=== PATIENT | male | born 1990 | race Caucasian/White ===

== ENCOUNTER 2019-12-04 18:04 | Emergency (ER) | payer OTHER ==
[2019-12-04 18:27] VITALS: BP 126/81
[2019-12-04 18:46] LABS: Influenza B Molecular POSITIVE (Negative)
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
== END 2019-12-04 19:45 | disposition home or self-care (01) ==
LOC: UCEAST 18:04
DX: J10.1 Influenza due to other identified influenza virus with other respiratory manifestations (principal); H66.92 Otitis media, unspecified, left ear; Z88.0 Allergy status to penicillin
CPT/HCPCS: 99212; G0463

== ENCOUNTER 2020-01-05 08:30 | Day surgery (SDC) | payer OTHER ==
[~2020-01-05 08:30] MED LIST: Buffered Lidocaine 1% SYRIN* 1 ML/SYRINGE INTRADERM ONE; Dexamethasone IV* 4 MG/ML 1 ML (4 MG) IV SLOW PU ONE; Famotidine IV* 10 MG/ML 2 ML (20 mg) IV ONE; Lactated Ringers 1000 ML Bag* 1,000 ML IV SCH
[2020-01-05] MEDS ORDERED: Dexamethasone IV* 4 MG/ML 1 ML (4 MG) ONE (08:49)
[2020-01-05] MEDS ORDERED: Famotidine IV* 10 MG/ML 2 ML (20 mg) ONE (08:50)
[2020-01-05] MEDS ORDERED: Buffered Lidocaine 1% SYRIN* 1 ML/SYRINGE INTRADERM ONE (08:50)
[2020-01-05] MEDS ORDERED: Clindamycin 900 MG/D5W BAG(*) 900 MG/50 ML BAG IVPB ONE (08:50)
[2020-01-05] MEDS ORDERED: Midazolam* 1 MG/ML 5 ML VIAL (5 MG) ONE (10:11)
[2020-01-05] MEDS ORDERED: Propofol* 10 MG/ML 20 ML BTL ONE (10:11)
[2020-01-05] MEDS ORDERED: fentaNYL* 50 MCG/ML 2 ML VIAL (100 MCG VIAL) ONE ×2 (10:11→13:13)
[2020-01-05] MEDS ORDERED: Lidocaine 2% PF * 5 ML VIAL ONE (10:11)
[2020-01-05] MEDS ORDERED: oxyCODONE/Acetamin 5/325 MG* TAB PO PRN (10:20)
[2020-01-05] MEDS ORDERED: HYDROcodone/ACETAMIN 5-325 MG* 1 TAB PO PRN (10:20)
[2020-01-05] MEDS ORDERED: Naloxone* 0.4 MG/ML 1 ML VIAL IV PRN (10:20)
[2020-01-05] MEDS ORDERED: DiMENhydriNATE IV* 50 MG/ML VIAL IV PUSH PRN (10:20)
[2020-01-05] MEDS ORDERED: Ketorolac INJ* 30 MG/ML 1 ML VIAL ONE (10:44)
[2020-01-05] MEDS ORDERED: Ondansetron INJ* 2 MG/ML VIAL ONE (11:37)
[2020-01-05] MEDS ORDERED: Bupivacaine 0.5%* 50 ML MDV VIAL ONE (11:58)
--- NOTE | 2020-01-05 12:58 | OP ---
Operative Report - Blank - Operative Report Date of Operation: 01/05/20 Note: PATIENT: Aba Ariza DATE OF : 1990 DATE OF SURGERY: 01/05/2020 SURGEON: Colt Miller MD EXPERIMENTAL MECHANIC: MELINA Montana, whos assistance was necessary for positioning, retraction, help with instrumentation, and closure. ANESTHESIOLOGIST: Dr. Boyd PREOPERATIVE DIAGNOSIS: Right osteochondral lesion of the talus and ankle instability POSTOPERATIVE DIAGNOSIS: Right osteochondral lesion of the talus and ankle instability OPERATION: 1. Right ankle arthroscopy with extensive debridement. 2. Curettage and microfracture of talar osteochondral lesion. 3. Right ankle modified Brostrom procedure lateral ligament reconstruction. ANESTHESIA: General IMPLANTS: none TOURNIQUET TIME: Less than 2 hours with a well-padded thigh tourniquet at 250 mmHg. SPECIMENS: none ESTIMATED BLOOD LOSS: minimal COMPLICATIONS: none STATUS: Stable from the operating room to the recovery room and then home. INDICATIONS FOR PROCEDURE: Aba has had recurrent right ankle instability and pain. Both operative and non operative treatment alternatives were reviewed. Further, the nature and risks of surgery were reviewed in careful detail, in the office as well as the pre-operative holding area. Our discussions regarding the risks of surgery included, but were not limited to, infection, wound problems, nerve injury, neuroma, RSD, persistent symptoms, blood clot, failure of the surgery, and even the remote chance of catastrophic complication. DESCRIPTION OF PROCEDURE: The patient was seen in the preoperative holding unit and informed written consent was obtained. The appropriate extremity was marked. The patient was then brought to the operating room and carefully positioned on the operating room table. Anesthesia was induced. All bony prominences were padded with great care. A well-padded thigh tourniquet was placed. A chlorhexidine based pre- scrub was performed followed by a chloraprep prep and drape in standard sterile fashion. A surgical safety pause was then conducted in which we confirmed the appropriate patient, extremity, planned procedure, availability of equipment, indication and administration of prophylactic antibiotics, and DVT prophylaxis in the form of a compression boot on the non-surgical extremity. An Esmarch exsanguination of the limb was then performed and the tourniquet inflated. The leg was positioned in the noninvasive ankle arthroscopy leg calderon setup. I began by establishing the anteromedial portal. I utilized a spinal needle for this. Great care was taken to protect the superficial neurovascular structures. Under direct visualization, I then established an anterolateral portal. Great care was taken to protect the superficial peroneal nerve. I utilized the full radius shaver to remove a considerable amount of synovitis from the anterior and posterior aspects of the ankle joint. This was carefully removed to give a nice view of the ankle joint. There was an osteochondral lesion of the talus at the lateral talar dome. There was some mild fraying of the cartilage at the medial talar dome, but no discrete lesion. At this point, I utilized a ringed curette to remove loose debris from within the osteochondral lesion. This was curetted back to a stable rim around the perimeter of lesion. The calcified cartilage layer was then removed. I then utilized the microfracture awl to microfracture the lesion. There was healthy bleeding from the subchondral bone. I then again utilized the full radius shaver to remove all additional debris from the ankle joint. I removed the arthroscopic equipment and closed the portals utilizing 3-0 nylon suture. I then made an approximately 8 cm incision overlying the distal fibula. This was made in line with the distal fibula and then curving anteriorly in line with the fourth ray. Dissection was carried down through the soft tissues. Superficial hemostasis was obtained. I dissected down to the lateral aspect of the fibula at the periosteal and ligamentous layer and then dissected anteriorly to expose the anterolateral ankle ligaments. We protected the superficial peroneal nerve at all times, which was not visualized within our field. Once we had adequately exposed a pocket anterior to the ligaments, we sharply took the ligaments down off of the anterior and distal aspect of the fibula using a 15 blade. There was marked thinning of the ligaments. The inferior extensor retinaculum was exposed and protected for subsequent repair later in the procedure. I then utilized a rongeur to make a trough along the fibula to receive the reconstructed ligaments. I then utilized a 0.045 and 0.062 inch K-wires to drill holes in the fibula for a transosseous suture repair of the lateral ligaments utilizing a horizontal mattress suture. Multiple #1 Vicryl sutures were passed through the fibula and then through the ligaments and then back through the fibula. These sutures were all passed with great care taken to appropriately tension both the ATFL as well as the CFL in order to get a nice tight repair. We held the ankle in a dorsiflexed and everted position while the ligaments and sutures were tied down over the fibular bone bridges. These held the ankle in a much improved position with excellent tension on the ligaments. We then utilized a rotational flap from the periosteum overlying the distal fibula to augment the repair. This was sewn down using a horizontal mattress stich overlying the ATFL. We further augmented the repair by bringing the inferior extensor retinaculum up to the fibula. There was a much improved anterior drawer at this point as compared to pre-operatively. The wound was copiously irrigated. At this point, a sterile dressing was applied and the ankle was splinted in a neutral position. The patient was then awakened from anesthesia and transferred to the recovery room in stable condition. There were no complications. All needle and sponge counts were correct at the end of the case. ATTESTATION: I attest I was present and scrubbed and performed the critical portions of the procedure myself. POSTOPERATIVE PLAN: The patient will remain nonweightbearing for an anticipated duration of six weeks. Follow up will be in two weeks for likely suture removal , Steri-Strip application and transition into a short leg cast.
[2020-01-05] MEDS ORDERED: oxyCODONE/Acetamin 5/325 MG* TAB ONE (13:13)
[2020-01-05] MEDS: fentaNYL* 50 MCG/ML 2 ML VIAL (100 MCG VIAL) IV PRN ×2 (13:18→13:35)
[2020-01-05 14:09] VITALS: BP 126/67
== END 2020-01-05 13:45 | disposition home or self-care (01) ==
LOC: OR 08:30
PROVIDERS: ATTEND Orthopaedic Surgery
DX: M93.271 Osteochondritis dissecans, right ankle and joints of right foot (principal); M25.371 Other instability, right ankle; M65.871 Other synovitis and tenosynovitis, right ankle and foot; M84.375A Stress fracture, left foot, initial encounter for fracture; Z88.0 Allergy status to penicillin
CPT/HCPCS: A9270-GY; J1100; J1885; J2250; J2405; J2704; J3010; J3490

== ENCOUNTER 2020-01-30 17:34 | Emergency (ER) | payer OTHER ==
--- OUTSIDE RECORDS SUMMARY | 2020-01-30 17:39 | XMS REPORT | Continuity of Care Document ---
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 Problems Active Problems Provider Date Osteochondritis dissecans Colt Miller MD Onset: 11/21/2018 Other synovitis and tenosynovitis, unspecified Colt Miller MD Onset: 11/21 ankle and foot Stress fracture of metatarsal bone Colt Miller MD Onset: 12/07/2019 Joint derangement Colt Miller MD Onset: 12/15/2019 Social History Type Date Description Comments Sex Unknown ETOH Use Rarely consumes alcohol Tobacco Use Start: Unknown Patient has never smoked Smoking Status Reviewed: 01/18/20 Patient has never smoked Exercise Type/Frequency Exercises regularly Allergies, Adverse Reactions, Alerts Active Allergies Reaction Severity Comments Date Penicillin 11/04/2018 Inactive Allergies NKDA 11/04/2018 Medications Active Medications SIG Qnty Indications Ordering Provider Date Knee Scooter use for M65.871 Colt Miller MD 01/06/2020 non-weightbearing after right ankle surgery ht: 72" wt: 170 lbs M93.271 M25.371 Oxycodone HCL 1 tabs by mouth every 12tabs Colt Miller MD 01/05/2020 5mg Tablets 4-6 hours as needed Medications Administered in Office Medication SIG Qnty Indications Ordering Provider Date Triamcinolone (Kenalog) Colt Miller MD 11/21/2018 Injection Immunizations Description No Information Available Vital Signs Date Vital Result Comment 01/18/2020 9:51am Height 72 inches 6'0" Weight 170.00 lb Heart Rate 89 /min Body Temperature 96.5 F O2 % BldC Oximetry 98 % BMI (Body Mass Index) 23.1 kg/m2 12/21/2019 2:50pm Height 72 inches 6'0" Weight 170.00 lb Heart Rate 54 /min Body Temperature 96.4 F O2 % BldC Oximetry 97 % BMI (Body Mass Index) 23.1 kg/m2 Results Test Acquired Date Facility Test Result H/L Range Note Laboratory test 12/17/2019 [facility] Vitamin D 23.3 ng/mL Normal 20-[address] Total 25(Oh) [place] [address] [phone] 1 Total 25-Hydroxyvitamin D2 and D3 (25-OH-VitD) <10 ng/mL (severe deficiency) 10-19 ng/mL (mild to moderate deficiency) 20-50 ng/mL (optimum levels) 51-80 ng/mL (increased risk of hypercalciuria) >80 ng/mL (toxicity possible) Procedures Date Code Description Status 01/18/2020 10554 Short Leg Cast Completed 01/05/2020 48721 Arthroscopy Ankle Debridement Extensive Completed 01/05/2020 63923 Arthoscopy Ankle Excision Osteochondral Defect Completed 01/05/2020 83828 Repair Collateral Ligament Ankle, Secondary Completed 01/05/2020 78118 Repair Collateral Ligament Ankle, Secondary Completed 01/05/2020 00175 Repair Collateral Ligament Ankle, Secondary Completed Medical Devices Description No Information Available Encounters Type Date Location Provider Dx Diagnosis Office Visit 12/21/2019 [facility] Colt Miller M93.271 Osteochondritis 2:15p at [place] MD alvarenga, r ankle and joints of right foot M25.371 Other instability, right ankle M84.375A Stress fracture, left foot, initial encounter for fracture Office Visit 12/15/2019 [facility] Colt Miller M84.375A Stress 9:45a Orthopedics at fracture, left [place] foot, initial encounter for fracture M93.271 Osteochondritis dissecans, r ankle and joints of right foot M25.371 Other instability, right ankle Office Visit 12/07/2019 1:30p [facility] Colt Miller M79.672 Pain in at [place] left foot R93.6 Abnormal findings on diagnostic imaging of limbs Assessments Date Code Description Provider 01/18/2020 M65.871 Other synovitis and tenosynovitis, right Colt Miller MD ankle and foot 01/18/2020 M93.271 Osteochondritis dissecans, right ankle and Colt Miller MD joints of right f 01/18/2020 M25.371 Other instability, right ankle Colt Miller MD 01/05/2020 M65.871 Other synovitis and tenosynovitis, right Andreeajo Contreras, RPA-C ankle and foot 01/05/2020 M65.871 Other synovitis and tenosynovitis, right Colt Miller MD ankle and foot 01/05/2020 M93.271 Osteochondritis dissecans, right ankle and Andreea Contreras, RPA-C joints of right f 01/05/2020 M93.271 Osteochondritis dissecans, right ankle and Colt Miller MD joints of right f 01/05/2020 M25.371 Other instability, right ankle Andreea Contreras, RPA-C 01/05/2020 M25.371 Other instability, right ankle Colt Miller MD 12/21/2019 M93.271 Osteochondritis dissecans, right ankle and Colt Miller MD joints of right f 12/21/2019 M25.371 Other instability, right ankle Colt Miller MD 12/21/2019 M84.375A Stress fracture, left foot, initial encounter Colt Miller MD for fracture 12/15/2019 M84.375A Stress fracture, left foot, initial encounter Colt Miller MD for fracture 12/15/2019 M93.271 Osteochondritis dissecans, right ankle and Colt Miller MD joints of right f 12/15/2019 M25.371 Other instability, right ankle Colt Miller MD 12/07/2019 M79.672 Pain in left foot Colt Miller MD 12/07/2019 R93.6 Abnormal findings on diagnostic imaging of Colt Miller MD limbs Plan of Treatment Future Appointment(s):02/16/2020 9:15 am - Colt Miller MD at [facility] at Sguqum2301/18/2020 - Colt Miller [facility]65.871 Other synovitis and tenosynovitis, right ankle and footM93.271 Osteochondritis dissecans, right ankle and joints of right fFollow up:Follow Up: 1 ijogoD22.371 Other instability, right ankle Functional Status Description No Information Available Mental Status Description No Information Available Referrals Description No Information Available
--- OUTSIDE RECORDS SUMMARY | 2020-01-30 17:40 | XMS REPORT | Continuity of Care Document ---
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 [phone] Problems Active Problems Provider Date Joint derangement Colt Miller MD Onset: 12/15/2019 Stress fracture of metatarsal bone Colt Miller MD Onset: 12/07/2019 Other synovitis and tenosynovitis, unspecified Colt Miller MD Onset: 11/21 ankle and foot Osteochondritis dissecans Colt Miller MD Onset: 11/21/2018 Social History Type Date Description Comments Sex Unknown ETOH Use Rarely consumes alcohol Tobacco Use Start: Unknown Patient has never smoked Smoking Status Reviewed: 12/15/19 Patient has never smoked Exercise Type/Frequency Exercises regularly Allergies, Adverse Reactions, Alerts Active Allergies Reaction Severity Comments Date Penicillin 11/04/2018 Inactive Allergies NKDA 11/04/2018 Medications Description No Active Medications Medications Administered in Office Medication SIG Qnty Indications Ordering Provider Date Triamcinolone (Kenalog) Colt Miller MD 11/21/2018 Injection Immunizations Description No Information Available Vital Signs Date Vital Result Comment 12/15/2019 9:49am Height 72 inches 6'0" Weight 170.00 lb Heart Rate 60 /min BP Systolic 122 mmHg BP Diastolic 60 mmHg Respiratory Rate 12 /min Body Temperature 98.1 F Pain Level 1 BMI (Body Mass Index) 23.1 kg/m2 12/07/2019 1:42pm Height 72 inches 6'0" Weight 170.00 lb Heart Rate 50 /min BP Systolic 130 mmHg BP Diastolic 68 mmHg Respiratory Rate 16 /min Body Temperature 97.4 F Pain Level 8 O2 % BldC Oximetry 98 % BMI (Body Mass Index) 23.1 kg/m2 Results Description No Information Available Procedures Description No Information Available Medical Devices Description No Information Available Encounters Description No Information Available Assessments Date Code Description Provider 12/15/2019 M84.375A Stress fracture, left foot, initial encounter Colt Miller MD for fracture 12/15/2019 M93.271 Osteochondritis dissecans, right ankle and Colt Miller MD joints of right f 12/15/2019 M25.371 Other instability, right ankle Colt Miller MD 12/07/2019 M84.375A Stress fracture, left foot, initial encounter Colt Miller MD for fracture Plan of Treatment Future Appointment(s):01/18/2020 9:30 am - Colt Miller MD at [facility] at Fznhxo5512/21/2019 2:15 pm - Colt Miller MD at [facility] at Gnaydm6212/15/2019 - Colt Miller MDM84.375A Stress fracture, left foot, initial encounter for fractureNew Labs:Vitamin D Total 25(Oh), Ordered: 12/15/19M93.271 Osteochondritis dissecans, right ankle and joints of right fNew Xrays:MRI Ankle Right W/O, Ordered: 12/15/19Follow up:Follow Up: after testing / imaging is [id number] Other instability, right ankle Functional Status Description No Information Available Mental Status Description No Information Available Referrals Description No Information Available
--- OUTSIDE RECORDS SUMMARY | 2020-01-30 17:40 | XMS REPORT | Continuity of Care Document ---
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 Problems Provider Date Osteochondritis dissecans [...] Patient has never smoked Smoking Status Reviewed: 12/21/19 Patient has never smoked Exercise Type/Frequency Exercises regularly Allergies, Adverse Reactions, Alerts Active Allergies Reaction Severity Comments Date Penicillin 11/04/2018 Inactive Allergies NKDA 11/04/2018 Medications Description No Active Medications Medications Administered in Office Medication SIG Qnty Indications Ordering Provider Date Triamcinolone (Kenalog) Colt Miller MD 11/21/2018 Injection Immunizations Description No Information Available Vital Signs Date Vital Result Comment 12/21/2019 2:50pm Height 72 inches 6'0" Weight 170.00 lb Heart Rate 54 /min Body Temperature 96.4 F O2 % BldC Oximetry 97 % BMI (Body Mass Index) 23.1 kg/m2 12/15/2019 9:49am Height 72 inches 6'0" Weight 170.00 lb Heart Rate 60 /min BP Systolic 122 mmHg BP Diastolic 60 mmHg Respiratory Rate 12 /min Body Temperature 98.1 F Pain Level 1 BMI (Body Mass Index) 23.1 kg/m2 Results Test Acquired Date Facility Test Result H/L Range Note Laboratory test 12/17/2019 [facility] Vitamin D 23.3 ng/mL Normal 20-[address](Oh) [place] [address] [phone] 1 Total 25-Hydroxyvitamin D2 and D3 (25-OH-VitD) <10 ng/mL (severe deficiency) 10-19 ng/mL (mild to moderate deficiency) 20-50 ng/mL (optimum levels) 51-80 ng/mL (increased risk of hypercalciuria) >80 ng/mL (toxicity possible) Procedures Description No Information Available Medical Devices Description No Information Available Encounters Type Date Location Provider Dx Diagnosis Office Visit 12/15/2019 [facility] Liam Copeland84.375A Stress fracture, 9:45a at [place] left foot, initial encounter for fracture M93.271 Osteochondritis dissecans, r ankle and joints of right foot M25.371 Other instability, right ankle Office Visit 12/07/2019 1:30p [facility] Lali Copeland.672 Pain in at [place] left foot R93.6 Abnormal findings on diagnostic imaging of limbs Assessments Date Code Description Provider 12/21/2019 M93.271 Osteochondritis dissecans, right ankle and [...] Miller MD limbs Plan of Treatment Future Appointment(s):01/05/2020 10:15 am - HOWIE Montana at [facility] at Feeqjl3601/05/2020 10:15 am - Colt Miller MD at [facility] at [id number]/18/2020 9:30 am - Colt Miller MD at [facility] at Fwukcr8812/21/2019 - Colt Miller, MDM93.271 Osteochondritis dissecans, right ankle and joints of right fFollow up:Follow Up: 13-15 days esouymO82.371 Other instability, right xwhjlK28.375A Stress fracture, left foot , initial encounter for fracture Functional Status Description No Information Available Mental Status Description No Information Available Referrals Description No Information Available
--- OUTSIDE RECORDS SUMMARY | 2020-01-30 17:40 | XMS REPORT | Continuity of Care Document ---
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 Problems Active Problems Provider Date Osteochondritis dissecans [...] Result H/L Range Note Laboratory test 12/17/2019 [facility] Vitamin D 23.3 ng/mL Normal 20-[address] Total [address](Oh) [place] [address] [phone] 1 Total 25-Hydroxyvitamin D2 and D3 (25-OH-VitD) <10 ng/mL (severe deficiency) 10-19 ng/mL (mild to moderate deficiency) 20-50 ng/mL (optimum levels) 51-80 ng/mL (increased risk of hypercalciuria) >80 ng/mL (toxicity possible) Procedures Description No Information Available Medical Devices Description No Information Available Encounters Type Date Location Provider Dx Diagnosis Office Visit 12/21/2019 [facility] M93.271 Osteochondritis 2:15p at [place] MD alvarenga, r ankle and joints of right foot M25.371 Other instability, right ankle M84.375A Stress fracture, left foot, initial encounter for fracture Office Visit 12/15/2019 [facility] Liam Copeland84.375A Stress 9:45a Orthopedics at fracture, left [place] foot, initial encounter for fracture M93.271 Osteochondritis dissecans, r ankle and joints of right foot M25.371 Other instability, right ankle Office Visit 12/07/2019 1:30p [facility] Colt Miller M79.672 Pain in at [place] left foot R93.6 Abnormal findings on diagnostic imaging of limbs Assessments Date Code Description Provider 12/21/2019 Mik3.271 Osteochondritis dissecans, right ankle and Colt Miller [...] Appointment(s):01/05/2020 10:15 am - HOWIE Montana at [facility] at Osqbxx1501/05/2020 10:15 am - Colt Miller MD at [facility] at Pxveik7201/18/2020 9:30 am - Colt Miller MD at [facility] at Fmhnew9012/21/2019 - Colt Miller, MDM93.271 Osteochondritis dissecans, right ankle and joints of right fFollow up:Follow Up: 13-15 days [id number] Other instability, right hyqtxW23.375A Stress fracture, left foot , initial encounter for fracture Functional Status Description No Information Available Mental Status Description No Information Available Referrals Description No Information Available
--- OUTSIDE RECORDS SUMMARY | 2020-01-30 17:40 | XMS REPORT | Continuity of Care Document ---
:1990 External Reference #:[id number] Author Name Colt Miller MD (transmitted by agent of provider Julia Watson) Address [address] [place] [phone] Care Team Providers Name Role Phone [facility]/[place] Care Team Information Hand Cutter [phone] Problems Active Problems Provider Date Osteochondritis dissecans [...] Result H/L Range Note Laboratory test 12/17/2019 [facility] Vitamin D 23.3 ng/mL Normal 20-[address](Oh) [place] [address] [phone] 1 Total 25-Hydroxyvitamin D2 and D3 (25-OH-VitD) <10 ng/mL (severe deficiency) 10-19 ng/mL (mild to moderate deficiency) 20-50 ng/mL (optimum levels) 51-80 ng/mL (increased risk of hypercalciuria) >80 ng/mL (toxicity possible) Procedures Date Code Description Status 01/18/2020 52569 Short Leg Cast Completed 01/05/2020 29568 Arthroscopy Ankle Debridement Extensive Completed 01/05/2020 51290 Arthroscopy Ankle Debridement Extensive Completed 01/05/2020 72487 Arthoscopy Ankle Excision Osteochondral Defect Completed 01/05/2020 44765 Arthoscopy Ankle Excision Osteochondral Defect Completed 01/05/2020 18455 Repair Collateral Ligament Ankle, Secondary Completed 01/05/2020 13485 Repair Collateral Ligament Ankle, Secondary Completed Medical Devices Description No Information Available Encounters Type Date Location Provider Dx Diagnosis Office Visit 12/21/2019 [place] Dannielle Miller M93.271 Osteochondritis 2:15p at [place] dissecans, r ankle and joints of right foot M25.371 Other instability, right ankle M84.375A Stress fracture, left foot, initial encounter for fracture Office Visit 12/15/2019 Isr[place] Miller M84.375A Stress 9:45a Orthopedics at fracture, left [place] foot, initial encounter for fracture M93.271 Osteochondritis dissecans, r ankle and joints of right foot M25.371 Other instability, right ankle Office Visit 12/07/2019 1:30p [place] [facility] M79.672 Pain in at [place] left foot R93.6 Abnormal findings on diagnostic imaging of limbs Assessments Date Code Description Provider 01/18/2020 M65.871 Other synovitis and tenosynovitis, right Colt Miller MD ankle and foot 01/18/2020 M93.271 Osteochondritis dissecans, right ankle and Colt Miller MD joints of right f 01/18/2020 M25.371 Other instability, right ankle Colt Miller MD 01/05/2020 M65.871 Other synovitis and tenosynovitis, right Andreea Diane, RPA-C ankle and foot 01/05/2020 M65.871 Other synovitis and tenosynovitis, right Colt Miller MD ankle and foot 01/05/2020 M93.271 Osteochondritis dissecans, right ankle and Andreea [place], RPA-C joints of right f 01/05/2020 M93.271 Osteochondritis dissecans, right ankle and Colt Miller MD joints of right f 01/05/2020 M25.371 Other instability, right ankle Andreea [place], RPA-C 01/05/2020 M25.371 Other instability, right ankle [...] Colt Miller MD limbs Plan of Treatment 01/18/2020 - Colt Miller MDM65.871 Other synovitis and tenosynovitis, right ankle and footM93.271 Osteochondritis dissecans, right ankle and joints of right fFollow up:Follow Up: 1 [id number] Other instability, right ankle Functional Status Description No Information Available Mental Status Description No Information Available Referrals Description No Information Available
--- OUTSIDE RECORDS SUMMARY | 2020-01-30 17:40 | XMS REPORT | Continuity of Care Document ---
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 Problems Active Problems Provider Date Osteochondritis dissecans [...] H/L Range Note Laboratory test 12/17/2019 [facility] Vitamin D 23.3 ng/mL Normal 20-[address](Oh) [place] [address] [phone] 1 Total 25-Hydroxyvitamin D2 and D3 (25-OH-VitD) <10 ng/mL (severe deficiency) 10-19 ng/mL (mild to moderate deficiency) 20-50 ng/mL (optimum levels) 51-80 ng/mL (increased risk of hypercalciuria) >80 ng/mL (toxicity possible) Procedures Description No Information Available Medical Devices Description No Information Available Encounters Type Date Location Provider Dx Diagnosis Office Visit 12/21/2019 [facility] Colt Miller M93.271 Osteochondritis 2:15p at [place] MD alvarenga r ankle and joints of right foot M25.371 Other instability, right ankle Office Visit 12/07/2019 1:30p [facility] Liam Copeland79.672 Pain in at [place] left foot R93.6 Abnormal findings on diagnostic imaging of limbs Assessments Date Code Description Provider 12/21/2019 M93.271 Osteochondritis dissecans, right ankle and Colt Miller MD joints of right f 12/21/2019 M25.371 Other instability, right ankle Colt Miller MD 12/15/2019 M84.375A Stress fracture, left foot, initial encounter Colt Miller MD for fracture 12/15/2019 M93.271 Osteochondritis dissecans, right ankle and Colt Miller MD joints of right f 12/15/2019 M25.371 Other instability, right ankle Colt Miller MD 12/07/2019 M79.672 Pain in left foot Colt Miller MD 12/07/2019 R93.6 Abnormal findings on diagnostic imaging of Colt Miller MD limbs Plan of Treatment Future Appointment(s):01/18/2020 9:30 am - Colt Miller MD at [facility] at Knqvpn6012/21/2019 - Colt Miller MDM93.271 Osteochondritis dissecans, right ankle and joints of right fFollow up:Follow Up: 13-15 days tuvzgbP00.371 Other instability, right ankle Functional Status Description No Information Available Mental Status Description No Information Available Referrals Description No Information Available
--- OUTSIDE RECORDS SUMMARY | 2020-01-30 17:40 | XMS REPORT | Continuity of Care Document ---
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 Problems Active Problems Provider Date Stress fracture of metatarsal bone Colt Miller MD Onset: 12/07/2019 Other synovitis and tenosynovitis, unspecified Colt Miller MD Onset: 11/21 ankle and foot Osteochondritis dissecans Colt Miller MD Onset: 11/21/2018 Social History Type Date Description Comments Sex Unknown ETOH Use Rarely consumes alcohol Tobacco Use Start: Unknown Patient has never smoked Smoking Status Reviewed: 12/07/19 Patient has never smoked Exercise Type/Frequency Exercises regularly Allergies, Adverse Reactions, Alerts Active Allergies Reaction Severity Comments Date Penicillin 11/04/2018 Inactive Allergies NKDA 11/04/2018 Medications Description No Active Medications Medications Administered in Office Medication SIG Qnty Indications Ordering Provider Date Triamcinolone (Kenalog) Colt Miller MD 11/21/2018 Injection Immunizations Description No Information Available Vital Signs Date Vital Result Comment 12/07/2019 1:42pm Height 72 inches 6'0" Weight 170.00 lb Heart Rate 50 /min BP Systolic 130 mmHg BP Diastolic 68 mmHg Respiratory Rate 16 /min Body Temperature 97.4 F Pain Level 8 O2 % BldC Oximetry 98 % BMI (Body Mass Index) 23.1 kg/m2 11/21/2018 3:18pm Height 72 inches 6'0" Weight 178.00 lb Heart Rate 80 /min Respiratory Rate 18 /min Body Temperature 97.1 F Pain Level 1 BMI (Body Mass Index) 24.1 kg/m2 Results Description No Information Available Procedures Description No Information Available Medical Devices Description No Information Available Encounters Description No Information Available Assessments Date Code Description Provider 12/07/2019 M84.375A Stress fracture, left foot, initial encounter Colt Miller MD for fracture Plan of Treatment Future Appointment(s):12/15/2019 9:45 am - Colt Miller MD at [facility] at Cpuxrd2312/07/2019 - Colt Miller, MDM84.375A Stress fracture, left foot, initial encounter for fractureFollow up:Follow Up: after testing / imaging is completed Functional Status Description No Information Available Mental Status Description No Information Available Referrals Description No Information Available
[2020-01-30 17:48] VITALS: BP 141/80
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
[2020-01-30] MEDS ORDERED: Cephalexin CAP* 500 MG PO ONE (17:54)
== END 2020-01-30 18:16 | disposition home or self-care (01) ==
LOC: UCEAST 17:34
DX: M70.31 Other bursitis of elbow, right elbow (principal); Z88.0 Allergy status to penicillin
CPT/HCPCS: 99212; A9270-GY; G0463